=== PATIENT | male | born 1985 ===

== ENCOUNTER 2017-02-13 16:00 | Emergency (ER) | payer SELFPAY ==
[2017-02-13 16:23] VITALS: BP 115/61; PULSE 77; RESP 16; TEMP 98.4; O2SAT 96
--- NOTE | 2017-02-13 16:38 | ED PDOC ---
Arrival/HPI - General Historian: Patient - General Chief Complaint: Back Pain Time Seen by Provider: 02/13/17 16:28 - History of Present Illness Narrative History of Present Illness (Text): 02/13/17 16:39 31yo male with no PMHx present with complaint of crampy right back pain x 2weeks. States pain started while lifting weight. The friend who was by the bedside states he was seen at [facility] [place] for same complaint last week and was DC home after negative LS xray. he came to ED requesting MRI. States he took Tylenol yesterday without relieve. His pain is with movement. Denies urinary symptoms, focal weakness, urinary/fecal incontinence, recent trauma, abdominal pain, any other complaint. (Tod Presley A) Past Medical History - Provider Review Nursing Documentation Reviewed: Yes - Psychiatric Hx Psychophysiologic Disorder: No Hx Substance Use: No Family/Social History - Physician Review Nursing Documentation Reviewed: Yes Family/Social History: Unknown Family HX Smoking Status: Current Some Days Smoker Hx Alcohol Use: Yes Frequency of alcohol use: Socially Hx Substance Use: No Allergies/Home Meds Allergies/Adverse Reactions: Allergies No Known Allergies Allergy (Verified 02/13/17 16:19) Review of Systems - Physician Review All systems were reviewed & negative as marked: Yes - Review of Systems Constitutional: Normal Eyes: Normal ENT: Normal Respiratory: Normal Cardiovascular: Normal Gastrointestinal: Normal Genitourinary Male: Normal Musculoskeletal: Back Pain Skin: Normal Neurological: Normal Endocrine: Normal Hemo/Lymphatic: Normal Psychiatric: Normal Physical Exam Vital Signs Reviewed: Yes Temperature: Afebrile Blood Pressure: Normal Pulse: Regular Respiratory Rate: Normal Appearance: Positive for: Well-Appearing, Non-Toxic, Comfortable Pain Distress: None Mental Status: Positive for: Alert and Oriented X 3 - Systems Exam Head: Present: Atraumatic, Normocephalic Pupils: Present: PERRL Extroacular Muscles: Present: EOMI Conjunctiva: Present: Normal Mouth: Present: Moist Mucous Membranes Neck: Present: Normal Range of Motion Respiratory/Chest: Present: Clear to Auscultation, Good Air Exchange. No: Respiratory Distress, Accessory Muscle Use Cardiovascular: Present: Regular Rate and Rhythm, Normal S1, S2. No: Murmurs Abdomen: Present: Normal Bowel Sounds. No: Tenderness, Distention, Peritoneal Signs Back: Present: Midline Tenderness, Paraspinal Tenderness (Right sided paraspinous tenderness), Pain with Leg Raise (B/L leg) Upper Extremity: Present: Normal Inspection. No: Cyanosis, Edema Lower Extremity: Present: Normal Inspection. No: Edema Neurological: Present: GCS=15, CN II-XII Intact, Speech Normal Skin: Present: Warm, Dry, Normal Color. No: Rashes Psychiatric: Present: Alert, Oriented x 3, Normal Insight, Normal Concentration Vital Signs Temp Pulse Resp BP Pulse Ox 02/13/17 16:20 98.4 F 77 16 115/61 96 Medical Decision Making ED Course and Treatment: I was available for consultation during PA evaluation. The chart was reviewed by me, and I agree with disposition. The documented history was done by the physician home inspector. The documented physical exam was done by the physician home inspector. The documented procedures were done by the physician home inspector. ( Feliciano Quiles) 02/14/17 00:03 PT presented for stated history. He was ambulatory with a steady gait and had no focal neurological deficit. He noted that he had a normal LS xray last week. He was DC home with a rx of Ibuprofen and flexeril. Referred to ortho. TRT ED for any new or worsening symptoms. (Tod Presley) - Medication Orders Current Medication Orders: Discontinued Medications Cyclobenzaprine HCl (Flexeril) 10 mg PO STAT STA Stop: 02/13/17 16:35 Last Admin: 02/13/17 16:49 Dose: 10 mg Ketorolac Tromethamine (Toradol) 60 mg IM STAT STA Stop: 02/13/17 16:35 Last Admin: 02/13/17 16:49 Dose: 60 mg Disposition/Present on Arrival - Present on Arrival Any Indicators Present on Arrival: No History of DVT/PE: No History of Uncontrolled Diabetes: No Urinary Catheter: No History of Decub. Ulcer: No History Surgical Site Infection Following: None - Disposition Have Diagnosis and Disposition been Completed?: Yes Disposition Time: 16:40 Patient Plan: Discharge - Disposition Diagnosis: Back pain Disposition: HOME/ ROUTINE Condition: STABLE Discharge Instructions (ExitCare): Back Pain (ED) Additional Instructions: Follow up with orthopedist Return to ED for any new symptoms Prescriptions: Cyclobenzaprine [Cyclobenzaprine HCl] 10 mg PO TID #10 tab Ibuprofen [Motrin Tab] 600 mg PO Q6 #20 tab Referrals: Ravindra Piper MD [Staff Provider] - Follow up with primary [facility] [place] [Outside] - Follow up with primary
[2017-02-13 17:01] VITALS: BMI 27.3
== END 2017-02-13 16:54 | disposition home or self-care (01) ==
LOC: ED 16:00
DX: M54.9 Dorsalgia, unspecified (principal)
CPT/HCPCS: 96372; 99282; J1885